=== PATIENT | female | born 1945 | race Caucasian/White ===

== ENCOUNTER 2024-08-30 15:43 | Emergency (ER) | payer OTHER ==
[2024-08-30 15:57] VITALS: BP 170/83; PULSE 92; RESP 18; TEMP 98.2; BMI 31.4
[2024-08-30 17:14] LABS: PROTHROMBIN TIME (PATIENT) 11.4 SEC (9.7-13.0)
[2024-08-30 17:17] LABS: ACTIVATED PTT 30.4 SECONDS (25.2-36.5); HEMATOCRIT 38.3 % (32.4-45.2); MCH 30.4 pg (25.7-33.7); MCHC 31.4 g/dl (32.0-36.0); MEAN CELL VOLUME 96.6 fl (80-96); MEAN PLT VOLUME 9.3 fl (7.5-11.1); PLATELET COUNT 324.6 10^3/uL (134-434); RBC 3.96 10^6/uL (3.60-5.2); RDW 16.4 % (11.6-15.6); WHITE BLOOD COUNT 10.3 10^3/uL (4.0-10.8)
[2024-08-30 17:55] LABS: ALBUMIN 4.6 g/dl (3.4-5.0); BILIRUBIN,TOTAL 0.8 mg/dl (0.2-1); CREATININE 0.9 mg/dl (0.6-1.3); MAGNESIUM 1.9 mg/dL (1.8-2.4); POTASSIUM 4.2 mmol/L (3.5-5.1); TOT PROT 7.4 g/dl (6.4-8.2)
[2024-08-30 18:05] LABS: OVALOCYTE 1+; PLATELET ESTIMATE SLT INCREASE; TARGET CELLS 1+
[2024-08-30 18:29] LABS: N-TERMINAL BNP 82.7 pg/ml (5-450)
== END 2024-08-30 19:48 | disposition left against medical advice (07) ==
LOC: FER 15:43
DX: R94.31 Abnormal electrocardiogram [ECG] [EKG] (principal); R42 Dizziness and giddiness
CPT/HCPCS: 36415; 71046-TC-FY; 80053; 83735; 83880; 84484; 85027; 85610; 85730; 93005; 99285-25